=== PATIENT | female | born 1940 | race Two or more races ===

== ENCOUNTER 2018-01-17 06:39 | Outpatient (CLI) | payer MEDICARE, MEDICAID ==
[2018-01-17] MEDS ORDERED: REGADENOSON 0.4 MG/5 ML DISP.SYRIN IVP ONE (08:00)
== END 2018-01-17 23:59 | disposition home or self-care (01) ==
LOC: NM 06:39
PROVIDERS: ATTEND Internal Medicine Cardiovascular Disease
DX: I20.8 Other forms of angina pectoris (principal); I10 Essential (primary) hypertension; E11.9 Type 2 diabetes mellitus without complications
CPT/HCPCS: 78452; A9502; J2785